=== PATIENT | male | born 1970 | race Hispanic/Latino ===

== ENCOUNTER → 2018-09-12 | Outpatient (REF) | payer OTHER | LOC: M SFHCLERA 13:49 | PROVIDERS: ATTEND Family Medicine | DX: E66.3 Overweight (principal) ==

== ENCOUNTER 2018-12-08 06:53 | Day surgery (SDC) | payer OTHER ==
[~2018-12-08] VITALS: Ht 175.3 cm; Wt 85.7 kg
[~2018-12-08 06:53] MED LIST: GNP400TA10 PO; RANI150T14 PO; ZOLO50TA PO
[2018-12-08] MEDS ORDERED: LIDOCAINE 2% INJ 100 MG/5 ML SDV (FOR ANES.) As Ordered ONE (06:57)
[2018-12-08] MEDS ORDERED: PROPOFOL 200 MG/20 ML VIAL As Ordered ONE (06:57)
[2018-12-08] MEDS ORDERED: NS 1,000 ML IV ONE (07:15)
--- NOTE | 2018-12-08 08:23 | ROOR ---
Patient Name: Jerome Jameson Procedure Date: 12/08/2018 8:08 AM Date of : 1970 Age: 48 Room: [facility] Gender: Male Note Status: Finalized Procedure: Colonoscopy Indications: Screening for colorectal malignant neoplasm Providers: Vazquez VELÁZQUEZ MD Referring MD: Adam ANDINO MD Requesting Provider: Medicines: Monitored Anesthesia Care Complications: No immediate complications. Procedure: Pre-Anesthesia Assessment: - The heart rate, respiratory rate, oxygen saturations, blood pressure, adequacy of pulmonary ventilation, and response to care were monitored throughout the procedure. The Colonoscope was introduced through the anus and advanced to the terminal ileum, with identification of the appendiceal orifice and IC valve. The colonoscopy was performed without difficulty. The patient tolerated the procedure well. The quality of the bowel preparation was good. Findings: The perianal and digital rectal examinations were normal. An area of erythematous mucosa was found in the distal rectum. The entire examined colon appeared normal on direct and retroflexion views. Impression: - Mildly irritated/erythematous mucosa in the distal rectum. - Small internal hemorrhoids. - The entire colon is otherwise normal on direct and retroflexion views. - No specimens collected. Recommendation: - Repeat colonoscopy in 10 years for screening purposes. Vazquez Velázquez MD Vazquez VELÁZQUEZ MD 12/08/2018 8:22:46 AM Electronically signed by Vazquez VELÁZQUEZ MD Number of Addenda: 0 Note Initiated On: 12/08/2018 8:08 AM Estimated Blood Loss: Estimated blood loss: none.
[2018-12-08 08:45] VITALS: BP 127/85
== END 2018-12-08 08:47 | disposition home or self-care (01) ==
LOC: M OPP 06:53
PROVIDERS: ATTEND Internal Medicine Gastroenterology
DX: Z12.11 Encounter for screening for malignant neoplasm of colon (principal); K62.89 Other specified diseases of anus and rectum; K64.9 Unspecified hemorrhoids; Z79.899 Other long term (current) drug therapy

== ENCOUNTER → 2020-01-11 | Outpatient (CLI) | payer OTHER | LOC: M LABSMTC 10:11 | PROVIDERS: ATTEND Orthopaedic Surgery | DX: Z03.818 Encounter for observation for suspected exposure to other biological agents ruled out (principal); Z11.59 Encounter for screening for other viral diseases ==

== ENCOUNTER → 2020-05-24 | Outpatient (CLI) | payer OTHER | LOC: M LABSMTC 11:15 | PROVIDERS: ATTEND Orthopaedic Surgery | DX: Z01.812 Encounter for preprocedural laboratory examination (principal); Z20.828 Contact with and (suspected) exposure to other viral communicable diseases ==